=== PATIENT | female | born 1965 | race Caucasian/White ===

== ENCOUNTER 2022-03-06 19:13 | Emergency (ER) | payer BC, SELFPAY ==
[2022-03-06 19:33] VITALS: BP 145/92; PULSE 110; RESP 18; TEMP 38.2; O2SAT 95
--- NOTE | 2022-03-06 19:55 | ED.URI ---
HPI - URI/Sore Throat General Chief Complaint: Upper Respiratory Infection Stated Complaint: Fever,Coughing Time Seen by Provider: 03/06/22 19:55 Source: patient and RN notes reviewed Mode of arrival: ambulatory Limitations: no limitations History of Present Illness HPI Narrative: 56 y/o female presented for c/o cough and fever for 4 days. Endorses chest feels congested and sob with exertion. Endorses temp 99-102 at home. Denies wheezing, n/v/d. Taking Mucinex and tylenol/ibuprofen for symptoms. Denies sick contacts. MD elicited complaint: cough Related Data Allergies Allergy/AdvReac Type Severity Reaction Status Date / Time nitroglycerin AdvReac Unknown COLD Verified 03/06/22 19:49 SWEATS, FEEL LIKE PASSING OUT Review of Systems Review of Systems: CONSTITUTIONAL: Endorses malaise, chills, sweats, fever EYES: Denies visual changes, redness, or discharge ENT: Reports rhinorrhea, congestion, sinus pain, otalgia, sore throat CARDIOVASCULAR: Denies chest pain, palpitations, edema RESPIRATORY: Reports cough, post nasal drainage. Denies dyspnea GASTROINTESTINAL: Denies abdominal pain, nausea, vomiting, diarrhea SKIN: Denies rash or itching MUSCULOSKELETAL: Endorses myalgia NEUROLOGIC: Denies headache PMFSH Past Medical History Medical History Acute bronchitis due to infection Acute intractable tension-type headache Acute left-sided back pain with sciatica Bilateral inguinal hernia, without obstruction or gangrene, recurrent BMI 39.0-39.9,adult BMI 40.0-44.9, adult Cervical pain (neck) Cyst of left kidney Diarrhea in adult patient Dietary counseling and surveillance (11/27/15) Elevated bilirubin Elevated fasting glucose Elevated glucose Encounter for immunization (01/21/15) Lesion of bone of right lower leg Low kidney function Mixed hyperlipidemia JOHANN (obstructive sleep apnea) Other viral agents as the cause of diseases classified elsewhere Rash in adult Right flank pain Screening for colon cancer Screening for diabetes mellitus Screening for lipid disorders Screening for thyroid disorder Snoring Splenic cyst Umbilical hernia without obstruction and without gangrene Viral URI with cough Weight gain Weight loss, non-intentional Family History Family History Mother Family history of malignant neoplasm of breast in first degree relative Family history of heart disease in male family member before age 55 Breast cancer Father Family history of lung cancer Sibling Acute myocardial infarction Tobacco abuse Other Carcinoma of colon Family history of cardiovascular disease Social History Social History Smoking status: Never smoker Second hand tobacco smoke exposure: Yes Alcohol intake: current Substance use: never Substance use type: does not use 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 TMs pearly fierro with dull light reflex bilaterally; no tragal tenderness. Oropharynx normal without lesions or exudate, no drooling, no hoarseness, no trismus, uvula midline. CHEST: Clear to auscultation, breath sounds equal. No wheezing, rhonchi, rales, or stridor. No respiratory distress, speaks in full sentences. HEART: Regular rate and rhythm. No murmur heard. SKIN: Warm, dry, no rash. NEURO: Alert and oriented x3. PSYCH: Normal mood and affect Course Course Emergency Course: Patient is aware of diagnosis, understands and agrees to treatment plan. Anticipatory guidance given. Patient agrees to follow-up as directed and is aware of reasons to seek care at the emergency department. Portions of this record
== END 2022-03-06 20:05 | disposition home or self-care (01) ==
PROVIDERS: Emergency Provider Nurse Practitioner Family; PCP Family Medicine
DX: B34.9 Viral infection, unspecified (principal); E78.2 Mixed hyperlipidemia; Z20.822 Contact with and (suspected) exposure to COVID-19
CPT/HCPCS: 87426; 87804; 99213; C9803; G0463

== ENCOUNTER 2023-02-08 16:59 | Emergency (ER) | payer BC, SELFPAY ==
[2023-02-08 17:05] VITALS: BP 153/93; PULSE 74; RESP 16; TEMP 37.6; O2SAT 100
--- NOTE | 2023-02-08 17:19 | ED.URI ---
HPI - URI/Sore Throat General Chief Complaint: Upper Respiratory Infection Stated Complaint: Sore Throat/Bodyaches Source: patient and RN notes reviewed Mode of arrival: ambulatory Limitations: no limitations History of Present Illness HPI Narrative: 57 y/o female presented for c/o sore throat, headache, fatigue, and body aches for 3 days. Reports painful swallow and talking. Holds secretions due to pain. Reports waking in the night due to the pain. Reports eating/drinking without difficulty. Denies sob, wheezing, nausea, vomiting or lethargy. Reports Negative strep and covid by pcp yesterday dx with acute pharyngitis. Patient has been taking antibiotic eye drops for pink eye for one week. MD elicited complaint: cough Related Data Allergies Allergy/AdvReac Type Severity Reaction Status Date / Time nitroglycerin AdvReac Unknown COLD Verified 02/08/23 17:04 SWEATS, FEEL LIKE PASSING OUT Review of Systems Review of Systems: CONSTITUTIONAL: Denies malaise, chills, sweats, fever EYES: Denies visual changes, redness, or discharge ENT: denies rhinorrhea, congestion, sinus pain, otalgia Reports sore throat CARDIOVASCULAR: Denies chest pain, palpitations, edema RESPIRATORY: Denies dyspnea, cough, post nasal drainage. GASTROINTESTINAL: Denies abdominal pain, nausea, vomiting, diarrhea SKIN: Denies rash or itching MUSCULOSKELETAL: Reports myalgia NEUROLOGIC: Reports headache PMFSH Past Medical History Medical History Acute bronchitis due to infection Acute intractable tension-type headache Acute left-sided back pain with sciatica Bilateral inguinal hernia, without obstruction or gangrene, recurrent BMI 37.0-37.9, adult BMI 38.0-38.9,adult BMI 39.0-39.9,adult BMI 40.0-44.9, adult Cervical pain (neck) Cyst of left kidney Diarrhea in adult patient Dietary counseling and surveillance (11/27/15) Elevated bilirubin Elevated fasting glucose Elevated glucose Encounter for immunization (01/21/15) Lesion of bone of right lower leg Low kidney function Mixed hyperlipidemia JOHANN (obstructive sleep apnea) Other viral agents as the cause of diseases classified elsewhere Rash in adult Right flank pain Screening for colon cancer Screening for diabetes mellitus Screening for lipid disorders Screening for thyroid disorder Snoring Splenic cyst Umbilical hernia without obstruction and without gangrene Viral URI with cough Weight gain Weight loss, non-intentional Family History Family History Mother Family history of malignant neoplasm of breast in first degree relative Family history of heart disease in male family member before age 55 Breast cancer Father Family history of lung cancer Sibling Acute myocardial infarction Tobacco abuse Other Carcinoma of colon Family history of cardiovascular disease Social History Social History Smoking status: Never smoker Second hand tobacco smoke exposure: Yes Alcohol intake: current Substance use: never Substance use type: does not use Lack of Transportation: YES Lack of Food: Never True Current Housing: I Have Housing Concerned About Future Housing: No Difficulty Paying Gas/Electric Bills: No Difficulty Paying for Meds: No Currently Unemployed: No Education: High School Diploma/GED Difficulty w/ Childcare or Family Care: No Living arrangements: with family Occupation/Education: retired 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 HEAD: Normocephalic EYES: PERRLA, EOMI; bilateral conjunctival injection, clear drainage ENT: Mucous membranes moist. TMs pearly fierro with dull light reflex bilater
[2023-02-08] MEDS: methylPREDNISolone SOD SUCC 125 MG VIAL IM (17:47)
== END 2023-02-08 18:30 | disposition left against medical advice (07) ==
PROVIDERS: Emergency Provider Nurse Practitioner Family; PCP Family Medicine
DX: J03.90 Acute tonsillitis, unspecified (principal); E78.2 Mixed hyperlipidemia
CPT/HCPCS: 36416; 86308; 87081; 87880; 96372; 99213; G0463; J2930

== ENCOUNTER → 2023-03-07 15:31 | Outpatient (CLI) | payer BC, SELFPAY ==
--- NOTE | ~2023-03-07 | XR_ITS ---
EXAMINATION: XR chest 2V 03/07/2023 16:28 INDICATION: Bronchitis PROCEDURE: 2 view chest COMPARISON: 08/09/2016 FINDINGS: The lungs are clear. The cardiomediastinal silhouette is within normal limits. There are no pleural effusions. There is no pneumothorax suspected. IMPRESSION: 1: NO ACUTE CARDIOPULMONARY DISEASE. Reviewed, dictated and finalized at location [facility]. [facility]
== END ==
PROVIDERS: PCP Physician Assistant Medical; Visit Provider Physician Assistant Medical
DX: J20.9 Acute bronchitis, unspecified (principal)
CPT/HCPCS: 71046

== ENCOUNTER 2023-03-24 09:25 | Outpatient (CLI) | payer BC, SELFPAY ==
--- NOTE | 2023-03-28 13:21 | WPDHOLTEREM ---
Holter/Event Monitor Holter/Event Monitor Date of procedure: 03/24/23 Holter/Event Procedure: 48 Hr Holter Monitor Indications: Cardiac arrhythmia Conclusion: 1. 48 hour holter monitor on 03/24/23. 2. Underlying rhythm is sinus rhythm. HR range 45-120 bpm; average HR 73 bpm. HR at 45 bpm was at 08:34. 3. There are 2,439 premature supraventricular complexes, 72 supraventricular couplets, 92 supraventricular bigeminy and 196 supraventricular trigeminy. No supraventricular tachycardia. 4. There are 4 premature ventricular complexes. No ventricular tachycardia. 5. No sinoatrial or atrioventricular blocks. No significant pauses greater than 2 seconds. 6. No symptoms available for correlation.
== END 2023-03-24 09:26 | disposition home or self-care (01) ==
LOC: ANHCARD 09:28
PROVIDERS: PCP Physician Assistant Medical; Visit Provider Physician Assistant Medical
DX: I49.9 Cardiac arrhythmia, unspecified (principal)
CPT/HCPCS: 93225; 93226

== ENCOUNTER 2023-10-03 15:35 | Emergency (ER) | payer BC, SELFPAY ==
--- NOTE | ~2023-10-03 | XR_ITS ---
XR chest 2V Ordering provider: LIAM Hsieh History: 58 years Female with . prod cough diff breathing x 1 week non smoker . Comparison: March 07, 2023 FINDINGS: MEDIASTINUM: The cardiac silhouette is not enlarged. LUNGS: No infiltrates, effusions or pneumothorax. OTHER: No free air under the diaphragm. Degenerative changes of the spine. IMPRESSION: No acute cardiopulmonary pathology. Reviewed, dictated and finalized at location A.
[2023-10-03 15:43] VITALS: BP 154/110; PULSE 83; RESP 16; TEMP 37; O2SAT 94
--- NOTE | 2023-10-03 16:39 | ED.URI ---
HPI - URI/Sore Throat General Chief Complaint: Upper Respiratory Infection Stated Complaint: Cough / Bronchitis Time Seen by Provider: 10/03/23 16:30 Source: patient and RN notes reviewed Mode of arrival: ambulatory Limitations: no limitations History of Present Illness HPI Narrative: Patient presents today complaining of productive cough and shortness of breath x1+ weeks. She was seen last week by her PCP and prescribed a course of cefuroxime after an office visit. States symptoms have been worsening since this visit. Denies fever, congestion, rhinorrhea, sore throat. She has tried Robitussin and Mucinex without relief. No history of asthma or COPD. Does report history of several episodes of bronchitis in her life. Related Data Allergies Allergy/AdvReac Type Severity Reaction Status Date / Time nitroglycerin AdvReac Unknown COLD Verified 09/26/23 09:09 SWEATS, FEEL LIKE PASSING OUT Review of Systems Review of Systems: CONSTITUTIONAL: Denies body aches, fever, chills, or sweats. EYES: Denies visual changes, redness, or discharge. ENT: Denies rhinorrhea, congestion, sore throat, or otalgia. CARDIOVASCULAR: Denies chest pain, palpitations, or edema. RESPIRATORY:+ cough, shortness of breath GASTROINTESTINAL: Denies abdominal pain, nausea, vomiting, or diarrhea. GENITOURINARY: Denies dysuria or hematuria. SKIN: Denies rash, itching, or wounds. MUSCULOSKELETAL: Denies back pain, joint pain, or myalgia. NEUROLOGIC: Denies headache, numbness, tingling, or weakness. PSYCH: Denies depression or anxiety. [facility] Past Medical History Medical History Acute bronchitis due to infection Acute intractable tension-type headache Acute left-sided back pain with sciatica Bilateral inguinal hernia, without obstruction or gangrene, recurrent BMI 37.0-37.9, adult BMI 38.0-38.9,adult BMI 39.0-39.9,adult BMI 40.0-44.9, adult Cervical pain (neck) Cyst of left kidney Diarrhea in adult patient Dietary counseling and surveillance (11/27/15) Elevated bilirubin Elevated fasting glucose Elevated glucose Encounter for immunization (01/21/15) Lesion of bone of right lower leg Low kidney function Mixed hyperlipidemia JOHANN (obstructive sleep apnea) Other viral agents as the cause of diseases classified elsewhere Rash in adult Right flank pain Screening for colon cancer Screening for diabetes mellitus Screening for lipid disorders Screening for thyroid disorder Snoring Splenic cyst Umbilical hernia without obstruction and without gangrene Viral URI with cough Weight gain Weight loss, non-intentional Family History Family History Mother Family history of malignant neoplasm of breast in first degree relative Family history of heart disease in male family member before age 55 Breast cancer Father Family history of lung cancer Sibling Acute myocardial infarction Tobacco abuse Other Carcinoma of colon Family history of cardiovascular disease Social History Social History Smoking status: Never smoker Second hand tobacco smoke exposure: Yes Alcohol intake: current Substance use: never Substance use type: does not use Lack of Transportation: YES Lack of Food: Never True Current Housing: I Have Housing Concerned About Future Housing: No Difficulty Paying Gas/Electric Bills: No Difficulty Paying for Meds: No Currently Unemployed: No Education: High School Diploma/GED Difficulty w/ Childcare or Family Care: No Living arrangements: with family Occupation/Education: retired 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
[2023-10-03 16:46] VITALS: PULSE 89; RESP 20; O2SAT 94
[2023-10-03] MEDS: IPRATROPIUM BR 0.02% INH SOLN 0.5 MG/2.5 ML VIAL INHALATION (16:46)
[2023-10-03] MEDS: ALBUTEROL SULFATE NEB 2.5 MG/3 ML INH INHALATION (16:46)
[2023-10-03 17:01] VITALS: PULSE 85; RESP 22; O2SAT 94
== END 2023-10-03 17:30 | disposition home or self-care (01) ==
PROVIDERS: Emergency Provider Nurse Practitioner; PCP Family Medicine
DX: J40 Bronchitis, not specified as acute or chronic (principal); E78.5 Hyperlipidemia, unspecified
CPT/HCPCS: 71046; 94640; 99213; G0463

== ENCOUNTER 2023-11-21 14:55 | Outpatient (CLI) | payer BC, SELFPAY ==
--- NOTE | ~2023-11-21 | CT_ITS ---
EXAMINATION:CT diagnostic chest w con DATE: 11/21/2023 15:21 INDICATION: Other abnormalities of breathing. TECHNIQUE: Computed tomography (CT) of the chest was performed with 75 mL Omnipaque 350 intravenous c ontrast. Automated exposure control and iterative reconstruction technique were employed. The dose-le ngth product (DLP) was 665.90 mGy-cm. COMPARISON: Chest 2 views 10/03/2023 FINDINGS: The lungs demonstrate mild atelectasis. A calcified left lung nodule and calcified left hil ar lymph nodes are consistent with old granulomatous disease. No pleural effusion. There is left atri al enlargement of the heart. No pericardial effusion. There are coronary artery calcifications. Calci fications in the spleen are consistent with old granulomatous disease. There is mild thoracic spondyl osis. There is a benign bone island in L2 vertebral body. IMPRESSION: 1. No significant lung disease. Reviewed, dictated and finalized at location A.
[2023-11-21 15:14] LABS: Estimated Glomerular Filt Rate > 60
== END 2023-11-21 14:56 ==
LOC: MICIMG 14:56
PROVIDERS: PCP Internal Medicine Endocrinology, Diabetes & Metabolism; Visit Provider Internal Medicine Endocrinology, Diabetes & Metabolism
DX: R06.89 Other abnormalities of breathing (principal)
CPT/HCPCS: 71260; Q9967

== ENCOUNTER 2024-01-07 14:04 | Observation (INO) | payer BC, SELFPAY ==
--- NOTE | ~2024-01-07 | CT_ITS ---
CT abdomen pelvis w con Ordering provider: Arash Lopes MD History: 58 years Female with . RLQ pain . Comparison: February 18, 2018 Technique: CT abdomen and pelvis with IV and without oral contrast. Automated exposure control and it erative reconstruction technique were employed. The dose-length product was 1385.66 mGy-cm. Findings: VISUALIZED LOWER CHEST: Dependent atelectatic changes. UPPER ABDOMINAL ORGANS: Liver: Hepatomegaly Gallbladder: Normal. Spleen: Normal. Stomach/duodenum: Sliding hiatus hernia. Pancreas: Normal. Adrenals: Normal. Kidneys: Multiple tiny cysts in the left kidney.. PELVIC ORGANS: The bladder is underfilled. Pneumothorax colon is normal. BOWEL AND MESENTERY: Colon: No evidence of diverticulitis. The appendix is slightly dilated with fluid-filled and measures 10 mm. Surrounding minimal fat stranding is seen near to the base. Small Bowel: Normal. No obstruction. Peritoneum/mesentery: No free air or free fluid. No mesenteric lymphadenopathy. RETROPERITONEUM: Mild atheromatous disease of the abdominal aorta. No retroperitoneal lymphadenopat hy. MUSCULOSKELETAL: Superficial soft tissues: Small fat-containing umbilical hernia. The superficial soft tissues are nor mal. Bones: Age appropriate degenerative changes of the spine. Sclerotic lesion in L2 on the left side. Fo llow-up advised. Sclerotic area in the left femoral head. Follow-up advised. IMPRESSION: 1. Highly suggestive of appendicitis. 2. Sliding hiatus hernia 3. Hepatomegaly. Reviewed, dictated and finalized at location A.
[2024-01-07 16:26] LABS: Basophils Percent Auto 0.3 % (0.2-1.2); Eosinophils Percent Auto 0.2 % (0-4.4); Hematocrit 40.1 % (37.0-47.0); Hemoglobin 13.8 g/dL (12.0-15.0); Immature Granulocyte Absolute 0.03 K/mm3 (0.00-0.031); Immature Granulocyte Percent A 0.2 % (0-0.5); Lymphocytes Absolute Auto 1.34 K/mm3 (0.9-3.2); Lymphocytes Percent Auto 10.4 % (18.3-44.2); Mean Corpuscular HGB Conc 34.4 g/dl (32-36); Mean Corpuscular Hemoglobin 31.8 pg (26-34); Mean Corpuscular Volume 92.4 fl (80-100); Mean Platelet Volume 10.2 fl (7.4-10.4); Monocytes Absolute Auto 0.7 K/mm3 (0.1-0.6); Monocytes Percent Auto 5.3 % (2.6-8.5); Neutrophils Absolute Auto 10.8 K/mm3 (1.3-6.7); Neutrophils Percent Auto 83.6 % (45.5-73.1); Platelet Count Result 244 k/mm3 (150-375); Red Blood Count 4.34 M/mm3 (4.2-5.4); Red Cell Distribution Width 12.1 % (11.5-14.5); White Blood Count 12.9 K/mm3 (4.5-10.0)
[2024-01-07 16:38] LABS: Alanine Aminotransferase 24 U/L (6-35); Albumin Level 4.8 g/dL (3.5-5.1); Alkaline Phosphatase 77 U/L (38-126); Anion Gap 9 mmol/L (4-12); Aspartate Amino Transferase 30 U/L (14-36); Bilirubin,Total 2.4 mg/dL (0.2-1.3); Blood Urea Nitrogen 19 mg/dL (7-17); Calcium 9.3 mg/dL (8.4-10.2); Carbon Dioxide 28 mmol/L (22-30); Chloride 101 mmol/L (98-107); Estimated CRCL calculation 98 ml/min; Estimated Glomerular Filt Rate > 60; Glucose 146 mg/dL (65-110); Lipase 83 U/L (23-300); Potassium 3.4 mmol/L (3.4-5.0); Sodium 138 mmol/L (137-145)
[2024-01-07 16:40] VITALS: BP 157/104; PULSE 68; RESP 19; TEMP 36.5; O2SAT 97
[2024-01-07] MEDS: ONDANSETRON INJ 4 MG/2 ML VIAL IV PUSH (16:57)
[2024-01-07] MEDS: MORPHINE SULFATE (*CRX) 2 MG/ML INJ IV PUSH (16:58)
--- NOTE | 2024-01-07 17:22 | ED.ABDPAIN ---
HPI - Abdominal Pain General Chief Complaint: Abdominal Pain Stated Complaint: abd pain Time Seen by Provider: 01/07/24 16:16 History of Present Illness HPI narrative: 58-year-old female presented to the emergency department for evaluation for right lower quadrant pain. Patient states symptoms started approximately 6:00 a.m. this morning. Patient does have associated nausea vomiting and diarrhea. Patient denies any previous abdominal surgeries, patient still has her gallbladder still has her appendix. Related Data Home Medications Medication Instructions Recorded Confirmed levothyroxine 25 mcg tablet 25 mcg PO DAILY 01/07/24 01/07/24 (Euthyrox) metformin 500 mg tablet,extended 500 mg PO DAILY 01/07/24 01/07/24 release 24 hr omega-3 acid ethyl esters 1 gram 1 cap PO BID 01/07/24 01/07/24 capsule Allergies Allergy/AdvReac Type Severity Reaction Status Date / Time nitroglycerin AdvReac Unknown COLD Verified 11/14/23 15:57 SWEATS, FEEL LIKE PASSING OUT Review of Systems Review of Systems: All systems reviewed & are unremarkable except as noted in HPI and below PMFSH Past Medical History Medical History Acute bronchitis due to infection Acute intractable tension-type headache Acute left-sided back pain with sciatica Bilateral inguinal hernia, without obstruction or gangrene, recurrent BMI 37.0-37.9, adult BMI 38.0-38.9,adult BMI 39.0-39.9,adult BMI 40.0-44.9, adult Cervical pain (neck) Cyst of left kidney Diarrhea in adult patient Dietary counseling and surveillance (11/27/15) Elevated bilirubin Elevated fasting glucose Elevated glucose Encounter for immunization (01/21/15) Lesion of bone of right lower leg Low kidney function Mixed hyperlipidemia JOHANN (obstructive sleep apnea) Other viral agents as the cause of diseases classified elsewhere Rash in adult Right flank pain Screening for colon cancer Screening for diabetes mellitus Screening for lipid disorders Screening for thyroid disorder Snoring Splenic cyst Umbilical hernia without obstruction and without gangrene Viral URI with cough Weight gain Weight loss, non-intentional Family History Family History Mother Family history of malignant neoplasm of breast in first degree relative Family history of heart disease in male family member before age 55 Breast cancer Father Family history of lung cancer Sibling Acute myocardial infarction Tobacco abuse Other Carcinoma of colon Family history of cardiovascular disease Social History Social History Smoking status: Never smoker Second hand tobacco smoke exposure: Yes Alcohol intake: never Substance use: never Substance use type: does not use Do You Feel Safe in your Home?: Yes Lack of Transportation: No Lack of Food: Never True Current Housing: I Have Housing Concerned About Future Housing: No Difficulty Paying Gas/Electric Bills: No Difficulty Paying for Meds: No Currently Unemployed: No Education: Associate Degree Difficulty w/ Childcare or Family Care: No Living arrangements: with family Occupation/Education: retired 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 HEAD: normocephalic, atraumatic. EYES: PERRLA/EOMI, conjunctivae clear. NOSE: Normal no drainage EARS:TMS clear with good light reflex. THROAT: Pharynx clear, no exudate. NECK: Supple. No adenopathy, no masses. RESPIRATORY: Airway patent, respirations nonlabored. Clear to auscultation bilaterally, no rales, rhonchi, wheezing. CARDIOVASCULAR: Regular rate and rhythm without murmurs rubs or gallops. AB
[2024-01-07 17:29] LABS: Add Urine Microscopic? YES; Appearance Urine Turbid (Clear); Bacteria Urine Rare /hpf; Bilirubin Urine Negative (Negative); Blood Urine 1+ (Negative); Color Urine Dark Yellow (Yellow); Glucose Urine UA Negative (Negative); Ketones Urine 3+ mg/dL (Negative); Leukocyte Esterase Ur 1+ LEU/UL (Negative); Need Manual Microscopic Reviewed; Nitrate Urine Negative (Negative); Non Pathogenic Casts 0-2; Protein Urine 2+ mg/dL (Negative); Specific Grav Ur 1.029 (1.001-1.035); Squamous Epithelial Cell Urine Few /hpf (Few); Urobilinogen Urine 0.2 mg/dL (<2.0); WBC Urine 21-50 /hpf (0-3); pH Urine 5.5 (5.0-9.0)
[2024-01-07] MEDS: PIPERACILLN/TAZ 3.375GM/NS50ML 3.375 GM/50 ML BAG IVPB ×2 (18:13→23:07)
[2024-01-07 19:49] VITALS: BP 132/82; PULSE 84; RESP 14; TEMP 36.8; O2SAT 100
[2024-01-07 19:50] VITALS: BMI 38.9
[2024-01-08] VITALS (9 sets, daily range): BP systolic 106–124; BP diastolic 59–78; PULSE 64–80; RESP 12–17; TEMP 36.3–36.8; O2SAT 89–100
[2024-01-08] MEDS: PIPERACILLN/TAZ 3.375GM/NS50ML 3.375 GM/50 ML BAG IVPB (05:33)
--- NOTE | 2024-01-08 10:22 | PM.SD2 ---
Same Day Admit/Disch: HPI History of Present Illness Chief complaint: Acute appendicitis Narrative: Aminah Santana is a 58 year old female who began having abdominal pain yesterday morning about 6:00 a.m.. The pain was persistent and moved to the right lower quadrant. She also noticed nausea vomiting and some diarrhea. She has had no previous abdominal surgery. She came to the emergency room where [place] [id number]. She had tenderness in the right lower quadrant and CT scan that showed acute appendicitis. The initial CT was somewhat equivocal, however by my review and a 2nd review by another radiologist, she clearly does have appendicitis. She is taken to surgery now for laparoscopic appendectomy. [facility] Past Medical History Medical History Acute bronchitis due to infection Acute intractable tension-type headache Acute left-sided back pain with sciatica Bilateral inguinal hernia, without obstruction or gangrene, recurrent BMI 37.0-37.9, adult BMI 38.0-38.9,adult BMI 39.0-39.9,adult BMI 40.0-44.9, adult Cervical pain (neck) Cyst of left kidney Diarrhea in adult patient Dietary counseling and surveillance (11/27/15) Elevated bilirubin Elevated fasting glucose Elevated glucose Encounter for immunization (01/21/15) Lesion of bone of right lower leg Low kidney function Mixed hyperlipidemia JOHANN (obstructive sleep apnea) Other viral agents as the cause of diseases classified elsewhere Rash in adult Right flank pain Screening for colon cancer Screening for diabetes mellitus Screening for lipid disorders Screening for thyroid disorder Snoring Splenic cyst Umbilical hernia without obstruction and without gangrene Viral URI with cough Weight gain Weight loss, non-intentional Family History Family History Mother Family history of malignant neoplasm of breast in first degree relative Family history of heart disease in male family member before age 55 Breast cancer Father Family history of lung cancer Sibling Acute myocardial infarction Tobacco abuse Other Carcinoma of colon Family history of cardiovascular disease Social History Social History Smoking status: Never smoker Second hand tobacco smoke exposure: Yes Alcohol intake: never Substance use: never Substance use type: does not use Do You Feel Safe in your Home?: Yes Lack of Transportation: No Lack of Food: Never True Current Housing: I Have Housing Concerned About Future Housing: No Difficulty Paying Gas/Electric Bills: No Difficulty Paying for Meds: No Currently Unemployed: No Education: Associate Degree Difficulty w/ Childcare or Family Care: No Living arrangements: with family Occupation/Education: retired 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 Gender identity (if verbalized by the patient): Female Spiritual care concerns: No Same Day Admit/Disch: Med Pre-admit Medications Home Medications Medication Instructions Recorded Confirmed Type citalopram 20 mg tablet 20 mg PO DAILY #90 tabs 08/26/23 01/07/24 Rx hydrochlorothiazide 25 mg tablet 25 mg PO DAILY #30 tabs 11/14/23 01/07/24 Rx atorvastatin 40 mg tablet 40 mg PO DAILY #90 tabs 12/08/23 01/07/24 Rx levothyroxine 25 mcg tablet 25 mcg PO DAILY 01/07/24 01/07/24 History (Euthyrox) metformin 500 mg tablet,extended 500 mg PO DAILY 01/07/24 01/07/24 History release 24 hr omega-3 acid ethyl esters 1 gram 1 cap PO BID 01/07/24 01/07/24 History capsule oxycodone-acetaminophen 5 mg-325 0.5 - 1 tablet PO Q6H PRN pain #10 01/08/24 Rx mg tablet tabs Review of Systems Review of Systems All systems reviewed & are unremarkable except as noted in HPI and below (HPI) Exam Const: General: co
--- NOTE | 2024-01-08 10:29 | WPDHPUPDATE1 ---
History and Physical Update Update Date/Time: 01/08/24 10:29 History and Physical has been reviewed, including an updated exam of the patient. There are NO changes in the patient's condition. Risks, benefits, and alternatives have been discussed and questions answered. Patient agrees to proceed with procedure.
--- NOTE | 2024-01-08 11:01 | WPDANESEPPF ---
Anes - Initial Pre Proc Eval Procedure: Operation Date: 01/08/24 11:30 Proposed Procedures p Laparoscopic Appendectomy - Mono Lara MD Date/Time: 01/08/24 11:01 Surgeon: Mono Lara MD Pre Op Diagnosis: Acute appendicitis Patient Data Age: 58 Gender: F Height: 1.73 m Weight: 116.4 kg Last Vital Signs Temp 36.8 C 01/08/24 05:27 Pulse 80 01/08/24 05:27 Resp 16 01/08/24 05:27 BP 114/78 01/08/24 05:27 Pulse Ox 100 01/08/24 05:27 O2 Del Method Room Air 01/07/24 19:37 Allergies Allergy/AdvReac Type Severity Reaction Status Date / Time nitroglycerin AdvReac Unknown COLD Verified 11/14/23 15:57 SWEATS, FEEL LIKE PASSING OUT Home Medications Medication Instructions Recorded Confirmed Type citalopram 20 mg tablet 20 mg PO DAILY #90 tabs 08/26/23 01/07/24 Rx hydrochlorothiazide 25 mg tablet 25 mg PO DAILY #30 tabs 11/14/23 01/07/24 Rx atorvastatin 40 mg tablet 40 mg PO DAILY #90 tabs 12/08/23 01/07/24 Rx levothyroxine 25 mcg tablet 25 mcg PO DAILY 01/07/24 01/07/24 History (Euthyrox) metformin 500 mg tablet,extended 500 mg PO DAILY 01/07/24 01/07/24 History release 24 hr omega-3 acid ethyl esters 1 gram 1 cap PO BID 01/07/24 01/07/24 History capsule Laboratory Tests 01/07/24 01/07/24 16:20 17:07 WBC 12.9 H K/mm3 (4.5-10.0) RBC 4.34 M/mm3 (4.2-5.4) Hgb 13.8 g/dL (12.0-15.0) Hct 40.1 % (37.0-47.0) MCV 92.4 fl (80-100) MCH 31.8 pg (26-34) MCHC 34.4 g/dl (32-36) RDW 12.1 % (11.5-14.5) Plt Count 244 k/mm3 (150-375) MPV 10.2 fl (7.4-10.4) Immature Gran % (Auto) 0.2 % (0-0.5) Neut % (Auto) 83.6 H % (45.5-73.1) Lymph % (Auto) 10.4 L % (18.3-44.2) Teller % (Auto) 5.3 % (2.6-8.5) Eos % (Auto) 0.2 % (0-4.4) Baso % (Auto) 0.3 % (0.2-1.2) Lymph # (Auto) 1.34 K/mm3 (0.9-3.2) Teller # (Auto) 0.7 H K/mm3 (0.1-0.6) Eos # (Auto) 0.0 K/mm3 (0-0.3) Baso # (Auto) 0.0 K/mm3 (0.0-0.1) Abs Immat Gran (auto) 0.03 K/mm3 (0.00-0.031) Absolute Neuts (auto) 10.8 H K/mm3 (1.3-6.7) Absolute Nucleated RBC 0.000 K/mm3 (0.0-0.012) Nucleated RBC % 0.0 % (0.0-0.2) Sodium 138 mmol/L (137-145) Potassium 3.4 mmol/L (3.4-5.0) Chloride 101 mmol/L (98-107) Carbon Dioxide 28 mmol/L (22-30) Anion Gap 9 mmol/L (4-12) BUN 19 H mg/dL (7-17) Creatinine 0.70 mg/dL (0.7-1.0) Estim Creat Clear Calc 98 ml/min Estimated GFR > 60 (59 - ) Glucose 146 H mg/dL (65-110) Calcium 9.3 mg/dL (8.4-10.2) Total Bilirubin 2.4 H mg/dL (0.2-1.3) AST 30 U/L (14-36) ALT 24 U/L (6-35) Alkaline Phosphatase 77 U/L (38-126) Total Protein 9.0 H g/dL (6.3-8.2) Albumin 4.8 g/dL (3.5-5.1) Lipase 83 U/L (23-300) Urine Color Dark yellow (Yellow) Urine Appearance Turbid H (Clear) Urine pH 5.5 (5.0-9.0) Ur Specific [place] 1.029 (1.001-1.035) Urine Protein 2+ H mg/dL (Negative) Urine Glucose (UA) Negative mg/dL (Negative) Urine Ketones 3+ H mg/dL (Negative) Ur Blood (Man) 1+ H (Negative) Urine Nitrate Negative (Negative) Urine Bilirubin Negative (Negative) Urine Urobilinogen 0.2 mg/dL (<2.0) Add Ur Microanalysis Reviewed Leukocyte Esterase Rfl 1+ H GERARDO/UL (Negative) Urine RBC 6-10 H /hpf (0-2) Urine WBC 21-50 H /hpf (0-3) Ur Squamous Epith Cells Few /hpf (Few) Urine Bacteria Rare /hpf Urine Casts 0-2 Patient hx anesthesia problems: post op nausea/vomiting Family hx anesthesia problems: none Results Review: All pre-operative results and documents have been reviewed as part of the
[2024-01-08] MEDS: SCOPOLAMINE 1 MG PATCH 1 PATCH TRANSDERM (11:11)
[2024-01-08] MEDS: ceFAZolin 2 GM/D5W 50 ML 2 GM/50 ML BAG IVPB (11:19)
[2024-01-08] MEDS: BUPIVACAINE/EPINEPHRINE 0.5% 50 ML VIAL 20 ML INFILTRATE (11:34)
[2024-01-08] MEDS: LACTATED RINGERS 1,000 ML 30 ML IV CONT (12:26)
--- NOTE | 2024-01-08 12:37 | P.OP_ITS ---
Procedure Note - Detailed Date of Procedure 01/08/24 Pre-op Diagnosis Acute appendicitis Post-op Diagnosis Same Procedure Performed Laparoscopic appendectomy Surgeon Mono Lara MD Airline Transport Pilot Gabby Weiss [facility] Anesthesia General and Local Indications Patient had right lower quadrant pain nausea vomiting leukocytosis and a CT scan positive for acute appendicitis Findings Acute non perforated appendicitis Description of Procedure Patient was taken to surgery and induced into general anesthesia. The abdomen is prepped and draped. Trocars were placed in usual fashion using applied Medical optical trocars and a 5 mm camera. Patient was placed in Trendelenburg with the right-side elevated. The appendix was found easily. It was elevated anteriorly. Dissection was carried out in the mesoappendix. This was more difficult than usual as there was an exceptional amount of fatty tissue associated with the mesoappendix. None the less dissection was carried out carefully and the appendiceal artery was thoroughly cauterized and divided. Continued dissection divided the entire mesoappendix thereby freeing the appendix except for its attachment to the cecum. The appendix was then skeletonized at its base. A Vicryl endoloop was used and the appendix was ligated at its base. We then amputated the appendix just above the ligature. The mucosa of the appendiceal stump was cauterized. The appendix was placed immediately in an Endo-Catch bag and retrieved through the 10 11 left lower quadrant trocar site. The trocar was then replaced. We reviewed the areas of dissection and the appendiceal stump. All looked good. There had been literally no bleeding and no other problems. We then evacuated CO2 and removed the trocar sleeves. Skin wounds were closed with subcuticular 4-0 Monocryl skin suture. Wounds were dressed with Exofin surgical adhesive. Patient was awakened and taken to recovery in good condition. Sponge needle counts were correct x2. Estimated Blood Loss -5 Pathology Yes (Appendix) Complications None Condition Stable Disposition PACU [facility] Billing Surgery - Charge Forward: Surgery Billing (Laparoscopic appendectomy)
[2024-01-08] MEDS: fentaNYL CITRATE INJ (*CRX) 100 MCG/2 ML VIAL 25 MCG IV PUSH (13:20)
[2024-01-08] MEDS: HYDROcodone/acetaminophen (*CRX) 5-325 MG TABLET 1 TAB PO (14:28)
[2024-01-09 14:27] LABS: BEDSIDEPREGUCG Negative (Negative)
== END 2024-01-08 16:30 | disposition home or self-care (01) ==
LOC: ANHED 16:29 → ANH3MEDSUR 18:34
PROVIDERS: Admitting Provider Surgery; Emergency Provider Emergency Medicine; PCP Family Medicine; Visit Provider Surgery
PROC: 0DTJ4ZZ Resection of Appendix, Percutaneous Endoscopic Approach (ICD-10-PCS; CPT 44970; principal; 2024-01-08 11:30)
DX: K35.80 Unspecified acute appendicitis (principal); E03.9 Hypothyroidism, unspecified; E11.9 Type 2 diabetes mellitus without complications; G47.33 Obstructive sleep apnea (adult) (pediatric); E78.2 Mixed hyperlipidemia; E66.9 Obesity, unspecified; Z68.39 Body mass index [BMI] 39.0-39.9, adult; Z79.84 Long term (current) use of oral hypoglycemic drugs
CPT/HCPCS: 44970; 36415; 74177; 80053; 81001; 81025; 83690; 85025; 87086; 87088; 88304; 96365; 96366; 96375; 96376; 99285; A9270; G0378; J0330; J0690; J1100; J1170; J1200; J1596; J2250; J2270; J2371; J2405; J2543; J2704; J3010; J7120; Q9967

== ENCOUNTER 2024-05-26 10:58 | Emergency (ER) | payer BC, SELFPAY ==
[2024-05-26 11:09] VITALS: BP 154/105; PULSE 88; RESP 18; TEMP 37.6; O2SAT 95
--- NOTE | 2024-05-26 11:15 | ED.URI ---
HPI - URI/Sore Throat General Chief Complaint: Upper Respiratory Infection Stated Complaint: Sore Throat/Sinus Time Seen by Provider: 05/26/24 11:16 Source: patient, RN notes reviewed and old records reviewed Mode of arrival: ambulatory Limitations: no limitations History of Present Illness HPI Narrative: 59-year-old female presents to the [facility] with complaints sinus congestion, sore throat, postnasal drainage muscle aches and that started , 2 days ago. Reports that her daughter and granddaughter both are positive for strep. Related Data Home Medications ?Medication ?Instructions ?Recorded ?Confirmed ?Last Taken ?Type levothyroxine 25 mcg tablet 25 mcg PO DAILY 01/07/24 02/05/24 01/06/24 08:00 History (Euthyrox) metformin 500 mg tablet,extended 500 mg PO DAILY 01/07/24 02/05/24 Unknown History release 24 hr omega-3 acid ethyl esters 1 gram 1 cap PO BID 01/07/24 02/05/24 01/06/24 21:00 History capsule Allergies Allergy/AdvReac Type Severity Reaction Status Date / Time nitroglycerin AdvReac Unknown COLD Verified 05/26/24 11:02 SWEATS, FEEL LIKE PASSING OUT Review of Systems Review of Systems: All systems reviewed & are unremarkable except as noted in HPI and below Constitutional: Constitutional: Reports no additional constitutional complaints ENT: Reports as per HPI, Reports post nasal drip and Reports sore throat Cardiovascular: Cardiovascular: Reports no additional cardiovascular complaints, Denies chest pain and Denies dyspnea Respiratory: Respiratory: Reports no additional respiratory complaints, Denies chest congestion, Denies cough and Denies dyspnea Musculoskeletal: Musculoskeletal: Reports no additional musculoskeletal complaints Integumentary/Breasts: Skin/Breast: Reports system reviewed and no additional complaints, except as docu [facility] Past Medical History Medical History BMI 38.0-38.9,adult BMI 37.0-37.9, adult BMI 39.0-39.9,adult Acute bronchitis due to infection Acute intractable tension-type headache Acute left-sided back pain with sciatica Bilateral inguinal hernia, without obstruction or gangrene, recurrent Cervical pain (neck) Cyst of left kidney Diarrhea in adult patient Dietary counseling and surveillance (11/27/15) Elevated bilirubin Elevated fasting glucose Elevated glucose Encounter for immunization (01/21/15) Lesion of bone of right lower leg Low kidney function Mixed hyperlipidemia JOHANN (obstructive sleep apnea) Other viral agents as the cause of diseases classified elsewhere Rash in adult Right flank pain Screening for colon cancer Screening for diabetes mellitus Screening for lipid disorders Screening for thyroid disorder Snoring Splenic cyst Umbilical hernia without obstruction and without gangrene Viral URI with cough Weight gain Weight loss, non-intentional BMI 40.0-44.9, adult Surgical History Surgical History History of laparoscopic appendectomy 01/07/[address] Lara. Family History Family History Mother Family history of malignant neoplasm of breast in first degree relative Family history of heart disease in male family member before age 55 Breast cancer Father Family history of lung cancer Sibling Acute myocardial infarction Tobacco abuse Other Carcinoma of colon Family history of cardiovascular disease Social History Social History Smoking status: Never smoker Second hand tobacco smoke exposure: Yes Alcohol intake: never Substance use: never Substance use type: does not use Do You Feel Safe in your Home?: Yes Lack of Transportation: No Lack of Food: Never True Current Housing: I Have Housing Concerned About Future Housing: No Difficulty Paying Gas/Electric Bills: No Difficulty Paying for Meds: No Currently Unemployed: No Education: Associate Degree Difficulty w/ Childcare or Family Care: No Living arrangements: with family Occupation/Education: retired 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 There is no relevant family history pertinent to the patient complaint. Exam Const: General: cooperative, healthy appearing, comfortable, no acute distress, well developed, alert and well nourished Nutritional Appearance: well nourished and obese Orientation/consciousness: patient oriented x3 Limitations: no limitations HENMT: Head: normal to inspection Ears: hearing grossly normal bilaterally, external ears normal, TM's normal bilaterally, EAC's normal, mastoids normal and no periauricular adenopathy Mouth: Yes Normal oral and palatal mucosa present, Yes lip normal, Yes tongue normal and Yes moist mucous membranes Throat: uvula midline, abnormal tonsil bilateral erythema, posterior oropharynx abnormal erythema; no edema and postnasal drainage Eyes: General: appearance normal, both eyes and all related structures Alignment and Position: alignment normal Neck: Neck: normal visual inspection, full ROM, no lymphadenopathy and no meningeal signs Chest: Chest palpation & inspection: normal inspection of the chest Resp: Effort & Inspection: normal respiratory effort and able to speak in complete sentences Auscultation: clear to auscultation bilaterally, no crackles, no rales, no rhonchi and no wheezes Cardio: Rate: regular rate Skin: General skin exam: normal color and no rashes or lesions noted Neuro: General: patient oriented x3, gait normal, moves all extremities and no meningeal signs Cognition (Neuro): normal cognition Speech: normal speech Gait exam (Neuro): Normal gait present Extrem: General: normal to inspection, full ROM, capillary refill normal and normal gait Psych: Appearance: grossly normal and well kempt Mental Status: mental status grossly normal Speech and movement: Normal speech and movement present and Clear speech present Affect: normal affect Attitude: cooperative Course Course Level of Care: Express Care Visit Vital Signs Vital signs: Vital Signs Temperature 99.6 F 05/26/24 11:09 Pulse Rate 88 05/26/24 11:09 Respiratory Rate 18 05/26/24 11:09 Blood Pressure 154/105 H 05/26/24 11:09 Pulse Oximetry 95 05/26/24 11:09 Oxygen Delivery Room Air 05/26/24 11:09 Temperature 99.6 F 05/26/24 11:09 Pulse Rate 88 05/26/24 11:09 Respiratory Rate 18 05/26/24 11:09 Blood Pressure 154/105 H 05/26/24 11:09 Pulse Oximetry 95 05/26/24 11:09 Oxygen Delivery Room Air 05/26/24 11:09 Reviewed MDM - URI/Sore Throat MDM Narrative Medical decision making narrative: Patient sitting comfortably in exam room. Nontoxic, vitals stable except blood pressure mildly elevated. Patient presents with 2 day history of sore throat. Patient is strep positive, patient is appropriate for outpatient treatment with antibiotics and close follow-up Discharge instructions reviewed with patient, as well as provided in writing per nursing staff. The instructions also include specific and strict return/GO TO THE ER as well as f/u information. All questions have been answered, and the patient deny any further questions with discharge and discharge plan. Some parts of this dictation were generated by voice recognition software and may contain typographical and/or grammatical inaccuracies. Differential Diagnosis Differential diagnosis: Likely upper respiratory infection, otitis media, sinusitis, viral infection, bronchitis, influenza and pharyngitis Lab Data Labs: Lab Results 05/26/24 Range/Units 11:05 POC Influenza A Ag Negative (Negative) POC Influenza B Ag Negative (Negative) POC SARS CoV-2 Ag Negative (Negative) POC Grp A Strep Screen Positive (Negative) Reviewed Critical Care Time Critical Care Time Critical Care Time: No Discharge Plan Discharge Clinical Impression: Strep pharyngitis Patient Disposition: Home, Self-Care Condition: Stable Instructions: Antibiotic Form, Strep Throat (ED) Additional Instructions: After 24-48 hours on antibiotics, Throw the toothbrush away, start using a new one. Please be sure to wash bed linens especially pillow cases. Repeat once you finish the antibiotics. Do not share drinks. Take Motrin alternating with Tylenol for pain and fever alternating every 4 hours. Increase fluids, avoid caffeine. Give plenty of water, juice, Gatorade, Pedialyte, ice pops in Jell-O Follow up with Primary provider if not getting better this week For new or worsening symptoms go directly to the emergency room Patient Language: Macedonian Prescriptions: New amoxicillin 500 mg tablet 500 mg PO Q12H Qty: 20 0RF No Action levothyroxine [Euthyrox] 25 mcg tablet 25 mcg PO DAILY metformin 500 mg tablet extended release 24 hr 500 mg PO DAILY Patient Comments: new medication patient hasn't started yet omega-3 acid ethyl esters 1 gram capsule 1 cap PO BID atorvastatin 40 mg tablet 40 mg PO DAILY Qty: 90 0RF citalopram 20 mg tablet 20 mg PO DAILY Qty: 90 1RF Follow-up/Referrals: Ronald Wise MD [Primary Care Provider[facility] 154/105[facility] Stand Alone Forms: Work/School Release IP Time of Disposition: 11:22
[2024-05-26 11:27] LABS: EDCOVIDSCREEN Negative (Negative); EDINFLUASCREEN Negative (Negative); EDINFLUBSCREEN Negative (Negative); EDSTREPNEGPOS1 Positive (Negative)
== END 2024-05-26 11:30 | disposition home or self-care (01) ==
PROVIDERS: Emergency Provider Nurse Practitioner; PCP Family Medicine
DX: J02.0 Streptococcal pharyngitis (principal); Z20.822 Contact with and (suspected) exposure to COVID-19; E78.2 Mixed hyperlipidemia
CPT/HCPCS: 87426; 87804; 87880; 99213; G0463

== ENCOUNTER 2024-08-22 08:21 | Outpatient (CLI) | payer BC, SELFPAY ==
--- NOTE | ~2024-08-22 | US_ITS ---
Abdominal Sonogram: Real-time sonographic imaging of the abdomen was performed. Clinical History: Elevated bilirubin Findings: The liver appears echogenic, with no evidence of mass lesion or bile duct dilatation. Main portal vein demonstrates normal direction of flow. The spleen is normal in size with calcified granu daysi present. The gallbladder is well distended, and appears normal with no evidence of gallstone o r wall thickening. The common bile duct measures 4 mm. The visualized pancreas, aorta, and IVC are u nremarkable. The right kidney measures 10.9 cm in length and the left kidney measures 10.8 cm. Ther e is no hydronephrosis or renal calculus. Impression: Diffuse fatty infiltration of the liver, with probable focal fatty sparing adjacent to the gallbladde r fossa. Reviewed, dictated and finalized at location M. Impression: Diffuse fatty infiltration of the liver, with probable focal fatty sparing terese cent to the gallbladder fossa.
--- OUTSIDE RECORDS SUMMARY | 2024-08-22 08:34 | XMS_ITS | Clinical Summary ---
Author Organization [facility] Address [address] [place] [address] Care Team Providers Care Telephone Lineman Name Role Phone Unavailable Primary Care Provider Unavailabl e Source Comments [facility] Earlier Media,non-owned Affiliates and Associated Physician Practices is amultiple site organization consisting of ambulatory clinics and hospital sitesin [place], [place], [place] and [place]. This disclosure is being madepursuant to the Care Everywhere program and may not contain all information available regarding this patient. Last updated 17.[facility] Earlier Media Social History Tobacco Use Types Packs/Day Years Used Date Smoking Tobacco: Never Assessed Comments Unknown Sex and Gender Information Value Date Recorded Sex Assigned at Not on file Legal Sex Female 3:40 PM CDT Gender Identity Not on file Sexual Orientation Not on file Plan of Treatment Health Maintenance Due Date Last Done Comments COLOGUARD (AGES 45-75) - COL ON CA SCREENING 1965 COLON MONITORING 1963 COLONOSCOPY - COLON CA SCREENING 1963 CT COLONOGRAPHY - COLON CA SCREENING 1965 Colorectal Cancer Screening 1963 FIT - COLON CA SCREENING 1963 FLEX SIG - COLON CA SCREENING 1963 LIPID TESTING 1965 MAMMOGRAM 1963 PAP SMEAR 1963 HIV SCREENING 1978 HEPATITIS C SCREENING 05/05/1981 DTAP/TDAP/TD VACCINES (1 - Tdap) 1982 PNEUMOCOCCAL VACCINE 50+ (1 of 1 - PCV) 2013 ZOSTER VACCINE (1 of 2) 2013 COVID-19 VACCINE ( - 2023-2 5 season) 2023 DEPRESSION SCREENING 04/11/2024 INFLUENZA VACCINE (Season Ended) 2024 Respiratory Syncytial Virus (RSV) Vaccine Pt: or over 60 yrs (1 - 1-dose 75+ series) 2038 HEPATITIS B VACCINE Aged Out No longe r eligible based on patient's age to complete this topic HIB VACCINE Aged Out No longer eligi ble based on patient's age to complete this topic HPV VACCINE Aged Out No longer eligi ble based on patient's age to complete this topic MENINGOCOCCAL (Group B) VACC INE SHARED DECISION-MAKING Aged Out No longer eligibl e based on patient's age to complete this topic MENINGOCOCCAL GROUPS A/C/Y/W VACCINE Aged Out No longer eligible b ased on patient's age to complete this topic Insurance [employer] SELF PAY NO INSURANCE Member Subscriber Plan / Payer (Ef fective for All Dates) Name:Alena Chowdhury Member ID:Not on file Relation to Subscriber:Not on file Name:ALENA CHOWDHURY Subscriber ID:Not on file (Home) Address[facility] [place] [address] Payer ID:Not on file Group ID:Not on file Type:Self Pay Address: [place], [place]
--- OUTSIDE RECORDS SUMMARY | 2024-08-22 08:34 | XMS_ITS ---
Author Organization [employer] [facility] Address [address] [place] [address] Care Team Providers Care Plaster Applicator Name Role Phone James Parsonsn Primary Care Provider REASON FOR VISIT zepbound Medications Medication SIG (Take, Route, Fr equency, Duration) Notes Start Date End Date Status Zepbound 2.5 MG/0.5ML 0.5 mL Subcutaneou s weekly for 90 days 05/09/2024 Active Encounters Encounter Location Date Provider Diagnosis [facility] - Jacklyn Issa [address] [place] [address] 05/09/2024 Jacklyn Parsons Obstructive sleep apnea (adult) (pediatric) G47.33 Assessments Encounter Date Diagnosis (ICD Code) Assessment Notes Treatment Notes Treatment Clinical Notes Section Notes 05/09/2024 Obstructive sleep apnea (adult) (pediatric) (ICD-10 - G47.33) Plan Of Treatment Medication Medication Name Sig Start Date Stop Date Notes Zepbound 2.5 MG/0.5ML 0.5 mL Subcutaneou s weekly for 90 days 05/09/2024 Progress Notes * MYRON CHOWDHURYISDOB: 4 (58 yo F)Acc No.[id number]:05/09/2024 Patient: ALENA ORTA :1965 A ge:58 Y S ex:Female Address:[address] [place] [address] * Refills Start Zepbound Solution Auto-injector, 2.5 MG/0.5ML, Subcutaneous, 6 Milliliter, 0.5 mL, weekly, 90 days, Refills=0 Subjective: * Chief Complaints: * Z epbound * Medical History: * Surgical History: * Hospitalization/Major Diagno stic Procedure: * Medications: Objective: * Vitals: * Physical Examination: Assessment: * Assessment: 1. O bstructive sleep apnea (adult) (pediatric) - G47.33 (Primary) Plan: * Treatment: * Procedure Codes: * true * Date: Generated for Hussein townsend/Jolynn/Hailey on: 0 08/22/2024 08:33 AM CDT
--- OUTSIDE RECORDS SUMMARY | 2024-08-22 08:34 | XMS_ITS ---
Author Organization [employer] [facility] Address [address] [place] [address] Care Team Providers Care Draw Hand Name Role Phone Jacklyn Parsons Primary Care Provider REASON FOR VISIT 4 month f/u archana Encounters Encounter Location Date Provider Diagnosis [facility] - Jacklyn Parsons [address] [place] [address] 07/30/2024 Jacklyn Parsons Plan Of Treatment No Information Progress Notes * MYRON CHOWDHURYISDOB: 4 (59 yo F)Acc No.[id number]:07/30/2024 Progress Notes Patient: ALENA ORTA Provider: Minh Parsons MD :1965 A ge:59 Y S ex:Female Date:07/30/2024 Address:[address] [place], [place] [id number] Subjective: * Chief Complaints: * 1 . 4 month f/u archana. * Medical History: Objective: * Vitals: Assessment: Plan: * Treatment: * Billing Information: * Visit Code: * Procedure Codes: * Electronic signature of James Parsons MD on 08/22/2024 at 08:34 AM CDT Sign off status: Pending * Provider: Minh Parsons MD Date: 07/30/2024 Generated for Hussein townsend/Jolynn/eTransmitting on: 08/22/2024 08:34 AM CDT
--- OUTSIDE RECORDS SUMMARY | 2024-08-22 08:34 | XMS_ITS | Clinical Summary ---
Author Organization [facility] Address [address] [place] [address] Care Team Providers Care Casting Room Helper Name Role Phone Ronald Wise MD Primary Care Provider Allergies No known active allergies Medications citalopram (CeleXA) 20 mg tablet 06/21/2018 Active Active Problems Problem Noted Date Diagnosed Date PAC (premature atrial contraction) 08/01/2023 JOHANN (obstructive sleep apnea) 08/01/2023 Mixed hyperlipidemia 08/01/2023 Morbid (severe) obesity due to excess calories 0 08/01/2023 Encounters Date Type Department Care Team Description 07/05/2024 Orders Only [facility] Medical [facility] Obstetrical Gynecology [address] [place] [address] [address] [place] [address] Harish Monge MD Recurrent cold sores (Primary Dx) 07/04/2024 Telephone [facility] Obstetrical Gynecology [address] [place] [address] [address] [place] [address] Harish Monge MD from Last 3 Months Surgical History Surgery Date Site/Laterality Comments BREAST LUMPECTOMY 04/11/2012 - 04/10/2013 Right benign BREAST EXCISIONAL BIOPSY 04/11/2012 - 04/10/2013 Right benign Medical History Medical History Date Comments Herpes Anxiety and depression Sleep apnea 2012 Family History Medical History Relation Name Comments Heart attack Brother Zeyad Ozuna Cancer Father Marky Ozuna Lung cancer Father Marky Ozuna Breast cancer Mother Sana Ozuna Cancer Mother Sana Ozuna Stroke Mother Sana Ozuna Relation Name Status Comments Brother Zeyad Ozuna Father Marky Ozuna Mother Sana Ozuna Social History Tobacco Use Types Packs/Day Years Used Date Smoking Tobacco: Former Cigarettes 0.1 3 Smokeless Tobacco: Never Tobacco Cessation:Counseling Given: Not Answered Alcohol Use Standard Drinks/Week Comments Not Currently 0 (1 standard drink = 0.6 oz pur e alcohol) Personal Safety Answer Date Recorded Getting School Help Needed Not on file 04/12 Comments No Sex and Gender Information Value Date Recorded Sex Assigned at Not on file Legal Sex Female 4:21 AM [employer] Gender Identity Not on file Sexual Orientation Not on file Obstetrics History Para Term AB IAB SAB Ectopic Multiple Livin g Live Births 1 1 1 Date Outcome GA Total Labor Labor/2nd/3rd Weight Sex Type Anes PTL Ronda A1 A5 Name Clin Term Comments 11/30 lifetime risk of breast cancer, 24% Last Filed Vital Signs Vital Sign Reading Time Taken Comments Blood Pressure 124/84 09/12/2023 10:12 AM CDT Pulse 72 08/01/2023 10:58 AM CDT Temperature 37 C (98.6 F) 08/31/2012 2:28 PM CDT Respiratory Rate - - Oxygen Saturation 97% 08/01/2023 10:58 AM CDT Inhaled Oxygen Concentration - - Weight 114.3 kg (252 lb) 09/12/2023 10:12 AM CDT Height 172.7 cm (5' 7.99 ) 09/12/2023 10:12 AM C DT Body Mass Index 38.33 09/12/2023 10:12 AM CDT Plan of Treatment Health Maintenance Due Date Last Done Comments Colon Cancer Screening-Colonoscopy 1965 Depression Screening 1965 Hepatitis C Screening 1965 Hepatitis B Screening 1981 Zoster Vaccine (1 of 2) 2013 Cervical Cancer Screening 08/26/20222021, 08/09/2018, 07/17/2014 Influenza Vaccine (#1) 2023 9, 01/17/2018, 01/16/2017, Additional history exists Regular Well Visit/Exam 18-64 09/11/2024 09/12/2023, 09/08/2022, 08/26/2021, Additional history exists Breast Cancer Screening-Mammogram 12/25/2024 12/26/2023, 12/21/2022, 11/27/2021, Additional history exists DTaP/Tdap/Td Vaccine (2 - Td or Tdap) 08/29/2028 08/29/2018 Pneumococcal vaccine <65 Aged Out No longer eligible based on patient's age to complete this topic Procedures Procedure Name Priority Date/Time Associated Diagnosis Comments SCREENING MAMMOGRAM BILATERAL W SHAHEEN Schedule Routine, Read Routine (OP Routine) 12/26/2023 9:23 AM CDT Encounter for screening mammogram for malignant neoplasm of breast PAP AND HIGH RISK HPV, REFLEX TO GENOTYPING Routine 08/26/2021 10:23 AM CDT Well woman exam from Last 3 Months or Most Recently Relevant to Health Maintenance Results * Screening Mammogram Bilateral W Shaheen (12/26/2023 9:23 AM CDT) Anatomical Region Laterality Modality Breast Bilateral Mammography Impressions 12/26/2023 10:03 AM CDT BI-RADS ATLAS category (overall): 2 - Benign There is no mammographic evidence of malignancy. A 1 year screening mammogram is recommended. The patient has been or will be contacted. We recommend annual screening mammography for women at average risk of breast cancer beginning at age 40, based on guidelines of the [employer] (ACR Practice Parameter for the Performance of Screening and Diagnostic Mammography) and [employer]. For women with and elevated risk of breast cancer, please refer to the ACR Practice Parameter for specific screening recommendations. The patient will be entered into a reminder system with a target due date of 1 year for her next screening exam. Narrative 12/26/2023 10:03 AM CDT Screening Mammogram Bilateral W Shaheen: 12/26/23 The study was acquired using full field digital technology and interpreted from soft copy. 2D digital mammographic views, as well as 3D digital tomosynthesis were performed in the CC and MLO projections. CLINICAL: Encounter for screening mammogram for malignant neoplasm of breast No relevant medical history has been documented for this patient. History of breast cancer in Mother. COMPARISONS: 12/21/2022 Screening Mammogram Bilateral W Shaheen 11/27/2021 Screening Mammogram Bilateral W Shaheen 11/24/2020 Screening Mammogram Bilateral W Shaheen 11/08/2019 Screening Mammogram Bilateral W Shaheen BREAST TISSUE: The breasts are heterogeneously dense, which may obscure small masses. FINDINGS: There are stable postoperative changes in the right breast. There is no new suspicious finding in either breast on mammogram. Harish Monge MD IMG MAMMO PROCEDURES Fi nal Result * Pap and High Risk HPV, reflex to Genotyping (08/26/2021 10:23 AM CDT) Thin prep (Pap test) 08/26/2021 10:23 AM CDT 08/27/2021 10:23 AM CDT Narrative PATHOLOGY [facility] - 08/31/2021 12:05 PM CDT [facility] Department of Pathology [address] [place] [address] Final Report with Addendum Note to Patients: This report may contain a detailed description of human tissue sent by a health care provider to the laboratory for pathologic evaluation. The content of this report is essential for diagnosis and may provide important critical findings. This information may be unfamiliar to patients to review without a medical professional present. It is advised that the patient review this report in the presence of a health care provider who can answer questions and explain the details. Patient Name: ALENA CHOWDHURY Address: [address] [place] [address] Gender: F : 1965 (Age: 56) Service: Laboratory Location: [facility] #: [id number] Patient Type: [facility] SPECIMEN Taken: 08/26/2021 Received: 08/27/2021 Accessioned:: 08/28/2021 Reported: 08/31/2021 Physician(s): Harish Monge M.D. [facility] Diagnosis: Source of Specimen: SCREENING THIN PREP IMAGED PAP w/ HPV Specimen Adequacy: - Satisfactory for evaluation; endocervical/transformation zone component present General Category: - Negative for intraepithelial lesion or malignancy SHRUTHI Alvarez(ASCP) Report Electronically Reviewed and Signed Out By SARAN AlvarezASCP) 08/31/2021 12:05:24 Addenda: HPV Test Interpretation NEGATIVE for types 16, 18, 31, 33, 35, 39, 45, 51, 52, 56, 58, 59, 66 and 68. Test performed utilizing Gen-Probe Aptima assay. SHRUTHI Valladares(ASCP) Report Electronically Reviewed and Signed Out By SARAN ValladaresASCP) 08/28/2021 12:35:03 Specimen(s) Received: A: SCREENING THIN PREP IMAGED PAP w/ HPV Clinical History: Menstrual History: Post-menopausal The Pap test is a screening test used to aid in the detection of cervical cancer and its precursors. It should not be the sole means by which malignant and premalignant lesions are diagnosed. Both false negative and false positive results may occur. It also has poor sensitivity for the detection of endometrial lesions and should not be used to evaluate suspected endometrial abnormalities. For these reasons it is most important to obtain Pap tests at regular intervals. The performance characteristics of some immunohistochemical stains, fluorescence in-situ hybridization tests and immunophenotyping by flow cytometry cited in this report (if any) were determined by the Surgical Pathology Department at [facility] as part of an ongoing lead quality technician program and in compliance with federally mandated regulations drawn from the Clinical Laboratory Improvement Act of 1988 (CLIA '88). Some of these tests rely on the use of analyte specific reagents and are subject to specific labeling requirements by the US Food and Drug Administration. Such diagnostic tests may only be performed in a facility that is certified by the Department of Health and Human Services as a high complexity laboratory under CLIA '88. The FDA has determined that such clearance or approval is not necessary. This test is used for clinical purposes. It should not be regarded as investigational or for research. Nevertheless, federal rules concerning the medical use of analyte specific reagents require that the following disclaimer be attached to the report: This test was developed and its performance characteristics determined by the Surgical Pathology Department [facility]. It has not been cleared or approved by the U. S. Food and Drug Administration. Harish Monge MD LAB CYTOLOGY ORDERABLES Final Result [facility] from Last 3 Months or Most Recently Relevant to Health Maintenance Insurance BLUE ACC CHOICE [facility] ACCESS CHOICE Care Teams Casting Room Helper Relationship Specialty Start Date End Date Ronald Wise MD PCP - General 08/10/16
--- OUTSIDE RECORDS SUMMARY | 2024-08-22 08:34 | XMS_ITS | Patient Health Record ---
Author Organization [employer] [facility] Address [address] [address] Care Team Providers Care Adjunct Professor Of Voice Name Role Phone Jacklyn Parsons Primary Care Provider Migration, Provider Unavailable Unavailable Allergies No Known Allergies Results Component Value Reference Range Notes COMPREHENSIVE METABOLIC PANE L Reviewed date:10/22/2023 09:36:56 AM Interpretation: Performing Lab:[facility], [facility] [address], [place], [address] Patel Rosa Notes/Report: FASTING:YES FASTING: YES VITAMIN D, 25-HYDROXY, LC/MS /MS Reviewed date:10/22/2023 09:31:34 AM Interpretation: Performing Lab:Jasbir MARIE, [address] [place], [address] Patel Rosa MD Notes/Report: FASTING:YES FASTING: YES ACTH, PLASMA Reviewed date:10/27/2023 09:24:13 PM Interpretation: Performing Lab:Jasbir MÉNDEZ/Remy [facility], [address] [facility] , [place], [address] Mike Hopkins M.D.,PhD Notes/Report: FASTING:YES FASTING: YES T3, FREE Reviewed date:10/22/2023 09:32:31 AM Interpretation: Performing Lab:Jasbir MARIE, [address] [place], [address] Patel Rosa MD Notes/Report: FASTING:YES FASTING: YES CORTISOL, TOTAL Reviewed date:10/22/2023 09:35:52 AM Interpretation: Performing Lab:[place], [facility], [address], [place], [address] Patel Rosa MD Notes/Report: FASTING:YES FASTING: YES DHEA SULFATE Reviewed date:10/22/2023 09:35:44 AM Interpretation: Performing Lab:CYNTHIA, [facility], [address], [place], [address] Patel Rosa MD Notes/Report: FASTING:YES FASTING: YES ESTRADIOL Reviewed date:10/22/2023 09:31:51 AM Interpretation: Performing Lab:PAGE, [facility], [address] [place], [address] Patel Rosa Notes/Report: FASTING:YES FASTING: YES FSH Reviewed date:10/22/2023 09:35:35 AM Interpretation: Performing Lab:CYNTHIA [facility], [address], [place], [address] Patel Rosa MD Notes/Report: FASTING:YES FASTING: YES LH Reviewed date:10/22/2023 09:35:27 AM Interpretation: Performing Lab:CYNTHIA [facility], [address], [place], [address] Patel Rosa MD Notes/Report: FASTING:YES FASTING: YES CBC (INCLUDES DIFF/PLT) Reviewed date:10/22/2023 09:36:23 AM Interpretation: Performing Lab:[facility], [address] [place], [address] Patel Rosa Notes/Report: FASTING:YES FASTING: YES VITAMIN B12/FOLATE, SERUM PA JONO Reviewed date:10/22/2023 09:32:00 AM Interpretation: Performing Lab:[facility], [address], [place], [address] Patel Rosa MD Notes/Report: FASTING:YES FASTING: YES PROGESTERONE Reviewed date:10/22/2023 09:32:20 AM Interpretation: Performing Lab:PAGE [facility], [address] [place], [address] Patel Rosa Notes/Report: FASTING:YES FASTING: YES LIPID PANEL Reviewed date:10/22/2023 09:37:05 AM Interpretation: Performing Lab:[facility]ir ABEL [facility], [address] [place], [address] Patel Rosa Notes/Report: FASTING:YES FASTING: YES T4, FREE Reviewed date:10/22/2023 09:32:39 AM Interpretation: Performing Lab:Jasbir MARIE-[facility], [address], [place], [address] Patel Rosa MD Notes/Report: FASTING:YES FASTING: YES TSH Reviewed date:10/22/2023 09:32:09 AM Interpretation: Performing Lab:[facility], [address] [place], [address] Patel Rosa Notes/Report: FASTING:YES FASTING: YES THYROID PEROXIDASE ANTIBODIE S Reviewed date:10/24/2023 07:05:06 PM Interpretation: Performing Lab:[facility]ID[facility], [facility] [place], [address] Ajith Perez Notes/Report: FASTING:YES FASTING: YES THYROID PEROXIDASE ANTIBODIES <1 <9 IU/mL COMPREHENSIVE METABOLIC PANE L Reviewed date:12/17/2023 08:56:25 PM Interpretation: Performing Lab:[facility], [address] [place], [address] Patel Rosa Notes/Report: FASTING:YES FASTING: YES T3, FREE Reviewed date:12/17/2023 08:57:03 PM Interpretation: Performing Lab:[facility]bir MARIE [facility], [address], [place], [address] Patel Rosa MD Notes/Report: FASTING:YES FASTING: YES CBC (INCLUDES DIFF/PLT) Reviewed date:12/17/2023 08:56:52 PM Interpretation: Performing Lab:Jasbir ABEL-[facility], [address] [place], [address] Patel Rosa Notes/Report: FASTING:YES FASTING: YES IRON AND TOTAL IRON BINDING CAPACITY Reviewed date:12/17/2023 08:56:41 PM Interpretation: Performing Lab:[place], [facility], [address], [place], [address] Patel Rosa MD Notes/Report: FASTING:YES FASTING: YES LIPID PANEL Reviewed date:12/17/2023 08:55:43 PM Interpretation: Performing Lab:PAGE [facility], [address] [place], [address] Patel Rosa Notes/Report: FASTING:YES FASTING: YES T4, FREE Reviewed date:12/17/2023 08:55:30 PM Interpretation: Performing Lab:PAGE [facility], [address] [place], [address] Patel Rosa Notes/Report: FASTING:YES FASTING: YES TSH Reviewed date:12/17/2023 08:57:12 PM Interpretation: Performing Lab:PAGE [facility], [address] [place], [address] Patel Rosa Notes/Report: FASTING:YES FASTING: YES COMPREHENSIVE METABOLIC PANE L Reviewed date:03/18/2024 10:33:28 AM Interpretation: Performing Lab:PAGE [facility], [address] [place], [address] Patel Rosa Notes/Report: FASTING:YES FASTING: YES T3, FREE Reviewed date:03/18/2024 10:33:28 AM Interpretation: Performing Lab:CYN[facility]IA [facility], [address], [place], [address] Patel Rosa MD Notes/Report: FASTING:YES FASTING: YES HEMOGLOBIN A1c Reviewed date:03/18/2024 10:33:28 AM Interpretation: Performing Lab:PAGE [facility], [address] [place], [address] Patel Rosa Notes/Report: FASTING:YES FASTING: YES CBC (INCLUDES DIFF/PLT) Reviewed date:03/18/2024 10:33:28 AM Interpretation: Performing Lab:PAGE [facility], [address] [place], [address] Patel Rosa Notes/Report: FASTING:YES FASTING: YES LIPID PANEL Reviewed date:03/18/2024 10:33:28 AM Interpretation: Performing Lab:PAGE, [facility], [address] [place], [address] [facility] Notes/Report: FASTING:YES FASTING: YES T4, FREE Reviewed date:03/18/2024 10:33:28 AM Interpretation: Performing Lab:PAGE, [facility], [address] [place], [address] [facility] Notes/Report: FASTING:YES FASTING: YES TSH Reviewed date:03/18/2024 10:33:28 AM Interpretation: Performing Lab:PAGE, [facility], [address] [place], [address] [facility] Notes/Report: FASTING:YES FASTING: YES Reason For Referral No Information Medications Medication SIG (Take, Route, Frequency, Duration) Notes Start Date End Date Status Bqoev-4-nhdu Ethyl Esters 1 GM 2 cap(s) orally 2 times a day for 90 days 12/30/2023 Active Zepbound 5 MG/0.5ML 0.5 mL Subcutaneous weekly for 90 days 04/02/2024 Active Unithroid 25 MCG (0.025 MG) 1 TAB(S) ORALLY ONCE A DAY for 90 DAYS *Please review and pick correct strength-formulati on from Medispan options. If intended option is not shown, discontinue and re-order from Quick Search* 01/05/2024 Active Citalopram Hydrobromide 20 MG 1 tab(s) orally once a day Active Zepbound 2.5 MG/0.5ML 0.5 mL Subcutaneous weekly for 30 days 04/02/2024 Active Atorvastatin Calcium 40 MG 1 tab(s) orally every other day for 90 days 11/01/2023 Active Unithroid 25 MCG (0.025 MG) 1 TAB(S) ORALLY ONCE A DAY for 90 DAYS *Please review and pick correct strength-formulati on from Medispan options. If intended option is not shown, discontinue and re-order from Quick Search* 12/30/2023 Active metFORMIN HCl ER 500 MG 1 tab(s) orally once a day for 90 days 12/30/2023 Active Zepbound 2.5 MG/0.5ML 0.5 mL Subcutaneous weekly for 90 days 05/09/2024 Active Problems Problem Type SNOMED Code ICD Code Onset Dates Problem Status W/U Status Risk Notes Problem Hypothyroidism (65764855) Hypothyroidism, unspecified (E03.9) Active confirmed Problem Obstructive sleep apnea syndrome (disorder) (45225185) Obstructive sleep apnea (adult) (pediatric) (G47.33) Active confirmed Problem Obesity (989343384) Obesity, unspecified (E66.9) Active confirmed Problem Mixed hyperlipidemia (936628502) Mixed hyperlipidemia (E78.2) Active confirmed Vital Signs Heart Rate 63 /min 04/02/2024 SpO2: 97% Blood pressure diastolic 94 mm Hg 04/02/2024 SpO 2: 97% Height 68 in 04/02/2024 SpO2: 97% Blood pressure systolic 149 mm Hg 04/02/2024 SpO2 : 97% Weight 252.4 lbs 04/02/2024 SpO2: 97% BMI 38.37 kg/m2 04/02/2024 SpO2: 97% Encounters Encounter Location Date Provider [facility] [employer] [address] [place] [address] 12/30/2023 Jacklyn Traffio Hypothyroidism, unspecified E03.9 ; Obesity, unspecified E66.9 and Mixed hyperlipidemia E78.2 [facility] [address] [place] [address] 04/02/2024 Jacklyn Parsons Hypothyroidism, unspecified E03.9 ; Obesity, unspecified E66.9 ; Mixed hyperlipidemia E78.2 ; Obstructive sleep apnea (adult) (pediatric) G47.33 and Dietary counseling and surveillance Z71.3 [facility] [address] [place] [address] 07/30/2024 Jacklyn Parsons [address] [address] 02/25/2024 Provider Migration Hypothyroidism, unspecified E03.9 ; Obesity, unspecified E66.9 and Mixed hyperlipidemia E78.2 [facility] [employer] [address] [place] [address] 11/01/2023 Jacklyn Parsons Hypothyroidism, unspecified E03.9 ; Other abnormalities of breathing R06.89 ; Shortness of breath R06.02 ; Mixed hyperlipidemia E78.2 and Obesity, unspecified E66.9 [facility] [employer] [address] [address] 10/18/2023 Jacklyn Parsons [facility] [address] [address] 11/07/2023 Jacklyn Parsons [facility] Jacklyn Wood [address] [place] [address] 11/18/2023 Jacklyn Parsons Shortness of breath R06.02 and Other abnormalities of breathing R06.89 [facility] Jacklyn Wood [address] [place] [address] 11/22/2023 Jacklyn Parsons [facility] Jacklyn Wood [address] [place] [address] 01/02/2024 Jacklyn Parsons Hypothyroidism, unspecified E03.9 ; Mixed hyperlipidemia E78.2 and Obesity, unspecified E66.9 [facility] [address] [place] [address] 03/12/2024 Jacklyn Wood Mixed hyperlipidemia E78.2 [facility] Jacklyn Traffio [address] [place] [address] 04/13/2024 Jacklyn Parsons Obstructive sleep apnea (adult) (pediatric) G47.33 [facility] Jacklyn Traffio [address] [place] [address] 05/09/2024 Jacklyn Parsons Obstructive sleep apnea (adult) (pediatric) G47.33 [facility] [employer] [address] [address] 2024 Jacklyn Parsons Assessments Encounter Date Diagnosis (ICD Code) Assessment Notes Treatment Notes Treatment Clinical Notes Section Notes 12/30/2023 Hypothyroidism, unspecified (ICD-10 - E03.9) Continue unithroid 25 mcg daily as FT4 in ideal range and patient having more improvement in mood and energy. 04/02/2024 Hypothyroidism, unspecified (ICD-10 - E03.9) 04/02/2024 Obesity, unspecified (ICD-10 - E66.9) 02/25/2024 Hypothyroidism, unspecified (ICD-10 - E03.9) 11/01/2023 Hypothyroidism, unspecified (ICD-10 - E03.9) Trial on low dose unithroid 25 mcg daily as patient TSH over 3.5 uIU/ml and she has fatigue, weight gain and swelling. Repeat thyroid panel in 4-6 weeks to assess response to therapy. She is aware to take with water only and wait one hour to have food/meds/other supplements. 11/01/2023 Other abnormalities of breathing (ICD-10 - R06.89) Send for PFTs as she has had multiple bouts of bronchitis. Need to rule out COPD- she might benefit from chronic B2/muscarinic inhaler therapy. Send for CT chest as well as she has noted more shortness of breath- she had a normal CXR just one month ago and had normal heart echocardiogram just a few months ago and not sure why she has had increased shortness of breath- had full cardiac clearance per patient. 11/18/2023 Shortness of breath (ICD-10 - R06.02) 01/02/2024 Hypothyroidism, unspecified (ICD-10 - E03.9) 03/12/2024 Mixed hyperlipidemia (ICD-10 - E78.2) 04/13/2024 Obstructive sleep apnea (adult) (pediatric) (ICD-10 - G47.33) 05/09/2024 Obstructive sleep apnea (adult) (pediatric) (ICD-10 - G47.33) 12/30/2023 Obesity, unspecified (ICD-10 - E66.9) Trial on metformin once daily with large meal as fasting glucose of 100 mg/dL. Discussed carb counting and how to read food labels. Recommended patient to utilize the diabetesfoAgentPiggyhub.com from the ADA website to help with food preparation as this presents ideal carb content per meal and will make carb counting easier for patient. Recommended he/she incorporate natural insulin sensitizers such as pears, apples, cinnamon, shara and sweet potatoes to help mobilize his/her endogenous insulin. Recommended up to 150 minutes of moderate level activity /exercise per week. 04/02/2024 Mixed hyperlipidemia (ICD-10 - E78.2) 02/25/2024 Obesity, unspecified (ICD-10 - E66.9) 11/01/2023 Shortness of breath (ICD-10 - R06.02) Send for PFTs as she has had multiple bouts of bronchitis. Need to rule out COPD- she might benefit from chronic B2/muscarinic inhaler therapy. Send for CT chest as well as she has noted more shortness of breath- she had a normal CXR just one month ago and had normal heart echocardiogram just a few months ago and not sure why she has had increased shortness of breath- had full cardiac clearance per patient. 11/18/2023 Other abnormalities of breathing (ICD-10 - R06.89) 01/02/2024 Mixed hyperlipidemia (ICD-10 - E78.2) 12/30/2023 Mixed hyperlipidemia (ICD-10 - E78.2) Continue on omega three fatty acids. 04/02/2024 Obstructive sleep apnea (adult) (pediatric) (ICD-10 - G47.33) 02/25/2024 Mixed hyperlipidemia (ICD-10 - E78.2) 11/01/2023 Mixed hyperlipidemia (ICD-10 - E78.2) Trial on fish oil as TG over 150 mg/dL and restart statin therapy as LDL Over 100 mg/dL- she has family hx of hypercholesterolemia and heart disease. Fasting glucose of 89 mg/dL but high TC/TG and LDL- she is aware statin therapies can cause myalgias and aches- she is aware to reach out with any concerns. 01/02/2024 Obesity, unspecified (ICD-10 - E66.9) 11/01/2023 Obesity, unspecified (ICD-10 - E66.9) discussed dietary measures in regards to weight loss- importance to restrict calories to 1200 per day if sedentary vs 6254-1432 calories depending on caloric expenditure. -fasting glucose was 89 mg/dL. Will start on thyroid medication with restriction of refined sugars and processed foods and reassess. She might benefit from GLP1 agonist therapy. 04/02/2024 Dietary counseling and surveillance (ICD-10 - Z71.3) 11/01/2023 Other Spent 25 minute s preparing to see the patient (ex review of tests/chart), obtaining and / or reviewing separately obtained history, performing a medically appropriate examination and/or evaluation, counseling and educating the patient/family/caregive r, ordering medications, tests, or procedures, referring and communicating with other health resident care aid, documenting clinical information in the electronic or other health record, independently interpreting results and communicating results to the patient/family/caregive r and care coordinating patient plan. Patient alert and oriented x 4 and aware of discussion noted above and in agreeance to plan in management of hypothyroidism, breathing changes, hyperlipidemia and weight management. 12/30/2023 Other Spent 25 minute s preparing to see the patient (ex review of tests/chart), obtaining and / or reviewing separately obtained history, performing a medically appropriate examination and/or evaluation, counseling and educating the patient/family/caregive r, ordering medications, tests, or procedures, referring and communicating with other health resident care aid, documenting clinical information in the electronic or other health record, independently interpreting results and communicating results to the patient/family/caregive r and care coordinating patient plan. Patient alert and oriented x 4 and aware of discussion noted above and in agreeance to plan in management of impaired glucose, hypothyroidism, mixed dyslipidemia and obesity. 04/02/2024 Other Assessment and Plan: 1. Prediabetes:- A1c: 5.7- Fasting glucose: 105Plan:- Encourage patient to restart metformin after the holidays- Continue monitoring A1c and fasting glucose levels- Maintain a diet with 120 grams of carbs and at least 100 grams of protein per day- Encourage 30-45 minutes of daily physical activity, such as walking or cycling 2. Obesity:Plan:- Consider GLP-1 agonist therapy (e.g., Ozempic, Somonjarres) if insurance covers it and patient is willing to try- Trial of Zepbound for sleep apnea-associated weight loss - Start with 2.5 mg, titrate to 5 mg after the first month - Monitor for side effects, such as constipation - Encourage adequate hydration, fiber, fruits, vegetables, and protein intake 3. Sleep apnea:- Severe sleep apneaPlan:- Trial of Zepbound for potential improvement in sleep apnea and weight loss-no hx of pancreatitis or medullary thyroid ca- she is aware to reach out if any nausea, vomiting or severe GI pain- Monitor patient's response to treatment and any changes in sleep apnea symptoms 4. Hyperlipidemia:- Triglycerides: 96- Total cholesterol: 126- LDL: 74Plan:- Continue atorvastatin- Encourage patient to increase omega-3 intake as tolerated 5. Hypothyroidism:- TSH: 2.23- Free T4: 1.1Plan:- Continue levothyroxine 25 mcg daily- Monitor thyroid function tests periodically 6. 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 Follow-up:- Schedule follow-up appointment to monitor progress, medication adherence, and response to treatments- Order necessary laboratory tests and imaging studies as needed Spent 15 minutes preventative counseling patient on dietary recommendations and changes in setting of hyperglycemia- need to restrict refined sugars and processed foods and incorporate up to 150 minutes of moderate level activity weekly. Spent 25 minutes preparing to see the patient (ex review of tests/chart), obtaining and / or reviewing separately obtained history, performing a medically appropriate examination and/or evaluation, counseling and educating the patient/family/caregive r, ordering medications, tests, or procedures, referring and communicating with other health resident care aid, documenting clinical information in the electronic or other health record, independently interpreting results and communicating results to the patient/family/caregive r and care coordinating patient plan. Patient alert and oriented x 4 and aware of discussion noted above and in agreeance to plan in management of hypothyroidism, obesity/weight management in setting of JOHANN, mixed hyperlipidemia. Plan Of Treatment Pending Test Test Name Order Date pulmonary function test 11/01/2023 CT Chest W & W/O contrast 11/01/2023 CT Chest with contrast 11/18/2023 Insurance Providers Payer Name Payer Address Payer Phone Subscriber Number Group Number Insured Name Patient Relationship to Insured Coverage Start Date Coverage End Date [facility] [address] [address] [place] [address] [id number] ALENA CHOWDHURY Self - patient is the insured Medical (General) History Medical History History ICD Code HIGH CHOLESTEROL DEPRESSION Surgical History Surgery Date(Month/Year) LUMPECTOMY 2012 Hospitalization History Reason Date(Month/Year)
--- OUTSIDE RECORDS SUMMARY | 2024-08-22 08:34 | XMS_ITS ---
Author Organization [facility] Address [address] [place] [address] Care Team Providers Care Experimental Psychologist Name Role Phone Jacklyn Parsons Primary Care Provider [phone] REASON FOR VISIT zepbound pa Encounters Encounter Location Date Provider Diagnosis [facility] [employer] [facility] [address] [facility] [place] [address] 2024 Jacklyn Parsons Plan Of Treatment No Information Progress Notes * LINHELENA ANETLMOOB: 4 (59 yo F)Acc No.[id number] Patient: ALENA ORTA :1965 A ge:59 Y S ex:Female Address:[address] [place] [address] * true * Date: Generated for Printi ng/Faxing/eTransmitting on: 0 08/22/2024 08:33 AM CDT
--- OUTSIDE RECORDS SUMMARY | 2024-08-22 08:34 | XMS_ITS | Encounter Summary ---
Author Organization [facility] Address [address] [place] [address] Care Team Providers Care Crown Buffer Name Role Phone Unavailable Primary Care Provider Unavailabl e Encounter Details Date Type Department Care Team (Late st Contact Info) Description 12/21/2022 Lab Requisition [facility] - DermPath Lab [address] [place] [id number] Molly Williamson PA-C [address] [place] [address] Neoplasm of uncertain behavior of skin Social History Tobacco Use Types Packs/Day Years Used Date Smoking Tobacco: Never Assessed Comments Unknown Sex and Gender Information Value Date Recorded Sex Assigned at Not on file Legal Sex Female 3:40 PM CDT Gender Identity Not on file Sexual Orientation Not on file documented as of this encounter Plan of Treatment Not on file documented as of this encounter Procedures Procedure Name Priority Date/Time Associated Diagnosis Comments DERMATOPATHOLOGY Routine 12/21/2022 12:0 0 AM CDT Neoplasm of uncertain behavior of skin documented in this encounter Results * DERMATOPATHOLOGY (12/21/2022 12:00 AM CDT) Case Report Dermatopathology Report Case: [id number] Authorizing Provider: Molly Williamson, Collected: 12/21/2022 12:00 AM JONNATHAN Ordering Location: [facility] DermPath Lab Received: 12/22/2022 01:57 PM Pathologist: Kailey Peña MD Specimen: Skin, right medial superior chest 3:25 PM CDT DERMATOPATHOLOGY LABORATORY Final Diagnosis Specimen A. SKIN, right medial superior chest: LICHEN PLANUS-LIKE KERATOSIS (BENIGN LICHENOID KERATOSIS) (L82.1) 3 3:25 PM CDT DERMATOPATHOLOGY LABORATORY Clinical History Basal Cell Carcinoma 3:25 PM CDT DERMATOPATHOLOGY LABORATORY Gross Description Specimen A: Received is one formalin filled container labeled with the patient's name and designated right medial superior chest. The specimen consists of a shave biopsy measuring 8x6x1 mm. Jar 0. 3:25 PM CDT DERMATOPATHOLOGY LABORATORY Microscopic Description Specimen A. SKIN, right medial superior chest: The epidermis is mildly acanthotic. There is a lichenoid infiltrate with vacuolar changes of basilar keratinocytes and scattered necrotic keratinocytes. 3 3:25 PM CDT DERMATOPATHOLOGY LABORATORY Disclaimer An external and internal positive and negative controls are appropriate for the histochemical, immunohistochemical and immunofluorescence stain(s) in this case (if any), except where stated explicitly. The performance characteristics of the stain(s) cited in this report were developed and its performance characteristic determined by the Dermatopathology Laboratory at [facility], directed by Dr. Alphonso Yeager. These tests need not be, and therefore are not, approved by the [place] Food and Drug Administration. The tests are used for clinical purposes. Billing Codes Specimen Charges Stain Charges 09871 1 3 3:25 PM CDT DERMATOPATHOLOGY LABORATORY Embedded Images 3:25 PM CDT DERMATOPATHOLOGY LABORATORY Pathology/Cytolog y TISSUE SPECIMEN FROM SKIN / Unknown 12/21/2022 12/22/2022 1:57 PM CDT us Molly Williamson PA-C LAB - PATHOLOGY/CYTO LOGY ORDERABLES Final Result DERMATOPATHOLOGY LABORATORY [facility] - Department of Dermatology [address], [address] [phone] documented in this encounter Visit Diagnoses Diagnosis Neoplasm of uncertain behavior of skin documented in this encounter
--- OUTSIDE RECORDS SUMMARY | 2024-08-22 08:34 | XMS_ITS | Referral Summary ---
Author Organization 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 Role Phone Ronald Wise MD Primary Care Provider [phone] Encounters Date Type Department Care Team Description 07/05/2024 Orders Only [facility] Obstetrical Gynecology [address] [place] [address] [address] [place] [address] Harish Monge MD Recurrent cold sores (Primary Dx) 07/04/2024 Telephone [facility] Obstetrical Gynecology [address] [place] [address] [address] [place] [address] Harish Monge MD from Last 3 Months Allergies No known active allergies Medications citalopram (CeleXA) 20 mg tablet 06/21/2018 Active Active Problems Problem Noted Date Diagnosed Date PAC (premature atrial contraction) 08/01/2023 JOHANN (obstructive sleep apnea) 08/01/2023 Mixed hyperlipidemia 08/01/2023 Morbid (severe) obesity due to excess calories 0 08/01/2023 Social History Tobacco Use Types Packs/Day Years [...] on file 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 For women [...] CDT 08/27/2021 10:23 AM CDT Narrative PATHOLOGY [facility] - 08/31/2021 12:05 PM CDT [facility] Department of Pathology [address] [place] [address] Final Report with Addendum Note to Patients: [...] the details. Patient Name: ALENA CHOWDHURY Address: [address] [place] [address] Gender: F : 1965 (Age: 56) Service: Laboratory Location: [facility] #: [id number] Patient Type: [facility] SPECIMEN Taken: 08/26/2021 Received: 08/27/2021 Accessioned:: 08/28/2021 Reported: 08/31/2021 Physician(s): Harish Monge M.D. [facility] Diagnosis: Source of Specimen: SCREENING THIN PREP IMAGED PAP w/ HPV Specimen Adequacy: - Satisfactory for evaluation; endocervical/transformation zone component present General Category: - Negative for intraepithelial lesion or malignancy SHRUTHI Alvarez(ASCP) Report Electronically Reviewed and Signed Out By SHRUTHI Alvarez(ASCP) 08/31/2021 12:05:24 Addenda: HPV Test Interpretation NEGATIVE [...] determined by the Surgical Pathology Department at [facility] as part of an ongoing quality liaison program and in compliance with federally mandated [...] characteristics determined by the Surgical Pathology Department [facility]. It has not been cleared or approved by the [place] Food and Drug Administration. Harish Monge MD LAB CYTOLOGY ORDERABLES Final Result PATHOLOGY 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
== END 2024-08-22 08:22 | disposition home or self-care (01) ==
PROVIDERS: PCP Family Medicine; Visit Provider Internal Medicine Endocrinology, Diabetes & Metabolism
DX: K76.0 Fatty (change of) liver, not elsewhere classified (principal)
CPT/HCPCS: 76700